=== PATIENT | male | born 1990 | race African-American/Black ===

== ENCOUNTER 2018-01-24 17:11 | Emergency (ER) | payer OTHER ==
[2018-01-24 18:03] VITALS: TEMP 98.7; BMI 18.6
--- NOTE | 2018-01-24 18:05 | PDOC ---
Rapid Medical Evaluation Time Seen by Provider: 01/24/18 17:59 Medical Evaluation: I have performed a brief in-person evaluation of this patient. The patient presents with a chief complaint of: left flank pain with hematuria x 1 week. Pertinent physical exam findings: Left flank pain with palpation. No CVA TTP b /l. I have ordered the following: UA/culture, kidney ultrasound, labs, IV fluids The patient will proceed to the ED for further evaluation. Discharge Disposition - Diagnosis Flank pain, Hematuria - Referrals - Patient Instructions - Post Discharge Activity
[2018-01-24 19:23] LABS: BASO % 0.9 % (0-2.0); EOS % 2.8 % (0-4.5); HEMATOCRIT 42.6 % (35.4-49); HEMOGLOBIN 14.3 GM/dL (11.7-16.9); LYMPH % 21.1 % (8-40); MCH 30.6 pg (25.7-33.7); MCHC 33.6 g/dl (32.0-35.9); MEAN CELL VOLUME 90.8 fl (80-96); MEAN PLT VOLUME 9.1 fl (7.5-11.1); MONO % 7.5 % (3.8-10.2); NEUT % 67.7 % (42.8-82.8); PLATELET COUNT 164 K/MM3 (134-434); RBC 4.69 M/mm3 (4.00-5.60); RDW 13.8 % (11.9-15.9); WHITE BLOOD COUNT 7.3 K/mm3 (4.0-10.0)
[2018-01-24 19:46] LABS: URINE APPEARANCE SLCLOUDY; URINE BILIRUBIN NEGATIVE (<2.0 mg/dL); URINE COLOR LTYELLOW; URINE GLUCOSE (UA) NEGATIVE (NEGATIVE); URINE KETONE NEGATIVE (NEGATIVE); URINE LEUK ESTERASE NEGATIVE (NEGATIVE); URINE NITRITE NEGATIVE (NEGATIVE); URINE PROTEIN NEGATIVE (NEGATIVE); URINE UROBILINOGEN 4.0 E.U/dl mg/dL (0.2-1.0)
[2018-01-24 19:52] LABS: ALBUMIN 4.6 g/dl (3.4-5.0); ALK PHOS 78 U/L (45-117); ANION GAP 7 (8-16); BILIRUBIN,TOTAL 0.7 mg/dL (0.2-1.0); BLOOD UREA NITROGEN 15 mg/dL (7-18); CALCIUM 9.2 mg/dL (8.5-10.1); CHLORIDE 107 mmol/L (98-107); CO2 29 mmol/L (21-32); CREATININE 1.1 mg/dL (0.7-1.3); GLUCOSE,RANDOM 86 mg/dL (74-106); POTASSIUM 3.7 mmol/L (3.5-5.1); SGOT/AST 17 U/L (15-37); SGPT/ALT 37 U/L (12-78); SODIUM 143 mmol/L (136-145); TOT PROT 7.4 g/dl (6.4-8.2)
--- NOTE | 2018-01-24 20:04 | PDOC ---
Attending Attestation - HPI HPI: 01/24/18 21:21 The patient is a 27 year old male with history of "kidney swelling" 2 years ago who presents to the ED complaining of 1 week of intermittent left flank pain and hematuria. Denies fever or chills. Denies nausea, vomiting, or diarrhea. Denies dysuria, frequency, or urgency. - Physicial Exam PE: 01/24/18 21:22 Constitutional: Awake, alert, oriented. No acute distress. Head: Normocephalic. Atraumatic Eyes: PERRL. EOMI. Conjunctivae are not pale. ENT: Mucous membranes are moist and intact. Posterior pharynx without exudates or erythema. Uvula midline. Neck: Supple. Full ROM. No lymphadenopathy. Cardiovascular: Regular rate. Regular rhythm. S1, S2 regular. Distal pulses are 2+ and symmetric. Pulmonary/Chest: No evidence of respiratory distress. Clear to auscultation bilaterally No wheezing, rales or rhonchi. Abdominal: Soft and non-distended. There is no tenderness. No rebound, guarding or rigidity. No organomegaly. No palpable masses. Good bowel sounds. Back: No CVA tenderness. Musculoskeletal: No edema. No cyanosis. No clubbing. Full range of motion in all extremities. Nocalf tenderness. Radial/pedal pulses are intact and 2+ bilaterally Skin: Skin is warm and dry. No petechiae. No purpura. Neurological: Alert and oriented to person, place, and time. Cranial nerves II -XII are grossly intact. Normal speech. Strength is grossly symmetric. No sensory deficits. Psychiatric: Good eye contact. Normal interaction, affect and behavior. - Medical Decision Making 01/24/18 21:23 Documentation prepared by Paula Nye, acting as medical photographer for Shanique Mccray DO. <Paula Nye - Last Filed: 01/24/18 21:21> - Resident Resident Name: Faisal Soria - ED Attending Attestation I have performed the following: I have examined & evaluated the patient, The case was reviewed & discussed with the resident, I agree w/resident's findings & plan, Exceptions are as noted - Medical Decision Making 01/24/18 20:04 I, Dr. Shanique Mccray DO, attest that this document has been prepared under my direction and personally reviewed by me in its entirety. I further attest, that it accurately reflects all work, treatment, procedures and medical decision -making performed by me. 01/24/18 21:34 a/p: 27yo male with intermittent L flank pain - hematuria -concern for kidney stone, however current pain resolved -will send labs, ua, ct abd/pelvis, renal ultrasound -hx of Kidney swelling in the past -will monitor and reassess 01/24/18 21:35 renal ultrasound negative -blood in ua pending ct abd/pelvis -will need outpt follow up with urology and nephrology <Shanique Mccray - Last Filed: 01/24/18 21:37>
--- NOTE | 2018-01-24 20:11 | PDOC ---
History of Present Illness - General Chief Complaint: Pain Stated Complaint: PAIN Time Seen by Provider: 01/24/18 17:59 History Source: Patient Exam Limitations: No Limitations - History of Present Illness Initial Comments: 01/24/18 20:04 Patient is a 27M with history of seizure 2 years ago complicated by "kidney swelling to twice their normal size" here today complaining of a week of hematuria with associated intermittent left flank pain. Patient is currently not in any pain, and states that he is concerned because of the blood in his urine. Denies fevers, chills, nausea, vomiting. Denies pain with urination. He states that he left against medical advice during his admission two years ago and never followed up with the a doctor regarding his admission. Endorses THC, denies etoh and other illicits. Past History - Past Medical History Allergies/Adverse Reactions: Allergies Allergy/AdvReac Type Severity Reaction Status Date / Time No Known Allergies Allergy Verified 01/24/18 18:01 Home Medications: Ambulatory Orders NK [No Known Home Medication] 01/24/18 COPD: No Other medical history: Pt denies - Suicide/Smoking/Psychosocial Hx Smoking History: Never smoked Have you smoked in the past 12 months: No Information on smoking cessation initiated: No Hx Alcohol Use: No Drug/Substance Use Hx: No Substance Use Type: None Review of Systems - Review of Systems Comments:: 01/24/18 20:19 GENERAL/CONSTITUTIONAL: No fever or chills. No weakness. HEAD, EYES, EARS, NOSE AND THROAT: No change in vision. No sore throat. CARDIOVASCULAR: No chest pain or shortness of breath RESPIRATORY: No cough, wheezing, or hemoptysis. GASTROINTESTINAL: No nausea, vomiting, diarrhea or constipation. GENITOURINARY: No dysuria, frequency, +hematuria MUSCULOSKELETAL: No joint or muscle swelling or pain. No neck or back pain. SKIN: No rash NEUROLOGIC: No headache, vertigo, loss of consciousness, or change in strength/ sensation. ENDOCRINE: No increased thirst. No abnormal weight change HEMATOLOGIC/LYMPHATIC: No anemia, easy bleeding, or history of blood clots. ALLERGIC/IMMUNOLOGIC: No hives or skin allergy. *Physical Exam - Vital Signs Last Vital Signs Temp Pulse Resp BP Pulse Ox 98.7 F 59 L 18 114/68 100 01/24/18 18:01 01/24/18 18:01 01/24/18 18:01 01/24/18 18:01 01/24/18 18:01 - Physical Exam Comments: 01/24/18 20:20 GENERAL: Awake, alert, and fully oriented, in no acute distress HEAD: No signs of trauma, normocephalic, atraumatic EYES: PERRLA, EOMI, sclera anicteric, conjunctiva clear ENT: Auricles normal inspection, hearing grossly normal, nares patent, oropharynx clear without exudates. Moist mucosa NECK: Normal ROM, supple, no lymphadenopathy, JVD, or masses LUNGS: No distress, speaks full sentences, clear to auscultation bilaterally HEART: Regular rate and rhythm, normal S1 and S2, no murmurs, rubs or gallops, peripheral pulses normal and equal bilaterally. ABDOMEN: Soft, nontender, normoactive bowel sounds. No guarding, no rebound. No masses EXTREMITIES: Normal inspection, Normal range of motion, no edema. No clubbing or cyanosis. NEUROLOGICAL: Cranial nerves II through XII grossly intact. Normal speech, normal gait, no focal sensorimotor deficits SKIN: Warm, Dry, normal turgor, no rashes or lesions noted. ED Treatment Course - LABORATORY CBC & Chemistry Diagram: 01/24/18 19:17 01/24/18 19:17 - ADDITIONAL ORDERS Additional order review: Laboratory Results 01/24/18 19:17 Sodium 143 Potassium 3.7 Chloride 107 Carbon Dioxide 29 Anion Gap 7 L BUN 15 Creatinine 1.1 Creat Clearance w eGFR > 60 Random Glucose 86 Calcium 9.2 Total Bilirubin 0.7 AST 17 ALT 37 Alkaline Phosphatase 78 Total Protein 7.4 Albumin 4.6 01/24/18 19:17 RBC 4.69 MCV 90.8 MCHC 33.6 RDW 13.8 MPV 9.1 Neutrophils % 67.7 Lymphocytes % 21.1 Monocytes % 7.5 Eosinophils % 2.8 Basophils % 0.9 Medical Decision Making - Medical Decision Making 01/24/18 20:20 Patient is a 27M with history of seizure and "enlarged kidneys" here today with hematuria and prior flank pain. Not in pain now. Vital signs stable and normal. DDx includes, but is not limited to: nephrolithiasis, UTI, renal cyst. Will evaluate with cbc, cmp, pt/inr, ua, uc, kidney ultrasound. Likely discharge given not in pain at this time. 01/24/18 20:23 US normal. CBC, CMP reassuring. Pending UA. 01/24/18 21:28 Laboratory Tests 01/24/18 01/24/18 01/24/18 19:17 19:17 19:26 WBC 7.3 Hgb 14.3 Plt Count 164 BUN 15 Creatinine 1.1 Urine Blood 3+ H Urine Nitrite Negative Ur Leukocyte Esterase Negative Urine WBC (Auto) 40 Urine RBC (Auto) 392 UA shows 3+ blood, LE/Nitrite negative. 40 whites, but no symptoms. Do not believe this is UTI. Will add CT scan to evaluate for stone. 01/24/18 22:14 CT scan normal. Will discharge home with outpatient follow up. *DC/Admit/Observation/Transfer Diagnosis at time of Disposition: Flank pain, Hematuria - Discharge Dispostion Disposition: HOME Condition at time of disposition: Good Decision to Admit order: No - Referrals Referrals: [facility] [place] [facility] [place] [Provider Group] Brock Umana MD [Staff Physician] - Marci Arenas MD [Staff Physician] - - Patient Instructions Printed Discharge Instructions: DI for Hematuria Additional Instructions: Please call to setup appointments with the primary care, nephrology, and urology this week. Please return if you have any new, worsening or concerning symptoms. - Post Discharge Activity
[2018-01-24 21:25] LABS: EPI CELLS RARE /HPF (FEW)
[2018-01-24 22:20] VITALS: BP 120/70; PULSE 72
== END 2018-01-24 22:20 | disposition home or self-care (01) ==
LOC: JER 17:11
DX: R10.32 Left lower quadrant pain (principal); Z87.442 Personal history of urinary calculi; Z86.69 Personal history of other diseases of the nervous system and sense organs
CPT/HCPCS: 36415; 74176; 76775-TC; 80053; 81003; 81015; 85025; 87086; 99283-25

== ENCOUNTER 2019-01-21 08:02 | Emergency (ER) | payer OTHER ==
[2019-01-21 08:18] VITALS: BP 106/63; PULSE 65; TEMP 98.1; BMI 18.6
[2019-01-21] MEDS ORDERED: IBUPROFEN 600 MG TABLET (FP) PO ONE ×2 (08:31→08:37)
[2019-01-21] MEDS ORDERED: CYCLOBENZAPRINE HCL 10 MG TABLET (FP) PO ONE (08:31)
[2019-01-21] MEDS ORDERED: CYCLOBENZAPRINE HCL 10 MG TABLET (FP) ONE (08:37)
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
== END 2019-01-21 08:55 | disposition home or self-care (01) ==
LOC: JERFT 08:02
DX: S29.8XXA Other specified injuries of thorax, initial encounter (principal); V47.6XXA Car passenger injured in collision with fixed or stationary object in traffic accident, initial encounter; Y92.411 Interstate highway as the place of occurrence of the external cause; Y93.89 Activity, other specified; Y99.8 Other external cause status
CPT/HCPCS: 99281-25

== ENCOUNTER 2020-02-11 04:40 | Day surgery (SDC) | payer OTHER ==
[2020-02-09 09:49] VITALS: BMI 18.6
[2020-02-11] MEDS ORDERED: MIDAZOLAM HCL 2 MG/2 ML SINGLE DOSE VIAL ONE ×2 (07:46)
[2020-02-11] MEDS ORDERED: PROPOFOL 20 ML ONE (07:46)
[2020-02-11] MEDS ORDERED: ROPIVACAINE HCL 0.5% 30ML VIAL ONE (07:47)
--- NOTE | 2020-02-11 07:57 | HP ---
Satellite [facility] - Chief Complaint Chief Complaint: left ankle fx - Past Medical History Allergies/Adverse Reactions: Allergies Allergy/AdvReac Type Severity Reaction Status Date / Time No Known Allergies Allergy Verified 02/11/20 06:26 - Current Medications Current Medications: Home Medications Medication Instructions Recorded Ibuprofen [Motrin -] 800 mg PO TID 02/09/20 Levetiracetam 500 mg PO 02/09/20 Acetaminophen [Tylenol Extra 1,000 mg PO Q8H 02/11/20 Strength] Satellite Physical Exam - Physical Examination Vital Signs: Vital Signs Period Temp Pulse Resp BP Sys/Art Pulse Ox Last 24 Hr 97.8 F 65 16 117/63 99 General Appearance: Well Nourished, Well Developed, Alert & Oriented x3 ENT: Clear Lung: Normal air movement Extremities: Other (left ankle- + swelling, + ttp, decr rom, nvi) Neurological: Intact, Alert, Oriented Satellite Impression/Plan - Impression/Plan Impression: left ankle fx Operative Procedure: left ankle orif Date to be Performed: 02/11/20
[2020-02-11] MEDS ORDERED: ceFAZolin SODIUM 1 GM VIAL ONE ×2 (08:28→09:22)
[2020-02-11] MEDS ORDERED: ceFAZolin SODIUM 1 GM VIAL IVPB ONE (08:30)
[2020-02-11] MEDS ORDERED: KETOROLAC TROMETHAMINE 30 MG/1 ML VIAL ONE (09:22)
[2020-02-11] MEDS ORDERED: DEXAMETHASONE SOD PHOSPHATE 4 MG/1 ML VIAL ONE (09:22)
--- NOTE | 2020-02-11 09:42 | OP ---
Operative Note - Note: Operative Date: 02/11/20 ([facility]) Pre-Operative Diagnosis: left distal fibula fx Operation: left ankle orif Post-Operative Diagnosis: Same as Pre-op Surgeon: Nikolas Kuo Snow Removal/Plowing: Isra Dennison Anesthesia: General, Local Estimated Blood Loss (mls): 50
[2020-02-11] MEDS ORDERED: oxyCODONE HCL 5 MG TABLET PO PRN ×2 (09:53)
[2020-02-11] MEDS ORDERED: ONDANSETRON 4 MG/2 ML VIAL IVPUSH PRN (09:53)
[2020-02-11] MEDS ORDERED: LACTATED RINGERS SOLUTION 1,000 ML IV SCH (10:00)
[2020-02-11 11:28] VITALS: BP 120/57; PULSE 53; TEMP 95.9
--- NOTE | 2020-02-11 12:52 | OP ---
DATE OF OPERATION: 02/11/2020 PREOPERATIVE DIAGNOSIS: Displaced left lateral malleolus fracture. POSTOPERATIVE DIAGNOSIS: Displaced left lateral malleolus fracture. PROCEDURE: Open reduction, internal fixation, left lateral malleolus fracture. SURGICAL ATTENDING: Nikolas Kuo MD SEGMENT ASSEMBLER: MOUNA oRdríguez ANESTHESIA: Regional and general. CLOSURE: A Tru distal fibula plate with appropriate lag and screw fixation, 0 Vicryl fascia, 2-0 subcutaneous, evi for skin. ESTIMATED BLOOD LOSS: Negligible. COMPLICATIONS: None. CONDITION: To recovery room in stable condition. DESCRIPTION OF OPERATIVE PROCEDURE: Patient was taken to the operating room on February 11, 2020. General anesthesia and regional anesthesia were administered by the anesthesiologist. IV Kefzol was administered prophylactically prior to the case. The left lower extremity was prepped and draped in the usual sterile fashion. A 10-cm longitudinal incision from the tip of the lateral malleolus propagating proximally was incised. Hemostasis was achieved using Bovie cautery. Sharp dissection was carried down full thickness down to the level of the fracture, then periosteal elevator was used to clean the fracture. The periosteum was feathered back at the level of the fracture using a 15-blade. Curets and irrigation were used to clean out the fracture site. A [id number] clamp was used to obtain an anatomical reduction of the fracture. There was some comminution. The fracture was lagged from posterior distal to anterior proximal using standard lag technique, achieving good compression of the fracture site. A Tru distal fibula plate was clamped to the lateral aspect of the fibula. One proximal and distal hole were drilled, depth gauge and screw of the appropriate size of nonlocking screws to cinch the plate down to the bone. Multiple other proximal and distal screws were drilled, depth gauge and screw with the appropriate size locking screws on the proximal nonlocking screw was then replaced with a locking screw to add to stability of the construct. X-ray in the AP, mortise, and lateral views revealed excellent reduction of the fracture with excellent position of the hardware. The wound was irrigated out with copious amounts of irrigation. The fascia was closed with 0 Vicryl, 2-0 for subcutaneous, and evi for skin. A sterile pressure dressing followed by a posterior splint with the ankle in neutral was applied. Patient awakened from anesthesia and transferred to recovery in stable condition. No complications. Estimated blood loss negligible. Cj [id number]
== END 2020-02-11 11:55 | disposition home or self-care (01) ==
LOC: JASU-SURG 04:40
PROVIDERS: ATTEND Orthopaedic Surgery
PROC: 0QSK04Z Reposition Left Fibula with Internal Fixation Device, Open Approach (ICD-10-PCS; principal; 2020-02-11 08:00)
DX: S82.62XA Displaced fracture of lateral malleolus of left fibula, initial encounter for closed fracture (principal); X58.XXXA Exposure to other specified factors, initial encounter; Y93.9 Activity, unspecified; Y92.9 Unspecified place or not applicable
CPT/HCPCS: 76000-TC-FY; 94760